=== PATIENT | female | born 1995 | race Caucasian/White ===

== ENCOUNTER 2016-11-27 20:38 | Emergency (ER) | payer MEDICAID ==
[~2016-11-27] VITALS: Ht 170.2 cm; Wt 77.1 kg
[2016-11-27] MEDS ORDERED: MORPHINE SULFATE 4 MG/ML SYRG IV ONE (21:45)
[2016-11-27] MEDS ORDERED: ONDANSETRON HCL 4 MG/2 ML VIAL IV ONE (21:45)
[2016-11-27] MEDS ORDERED: HYDROmorphone HCL 2 MG/ML VL ONE (22:29)
[2016-11-27] MEDS ORDERED: CARISOPRODOL 350 MG TAB PO ONE (23:45)
[2016-11-28] MEDS ORDERED: LORazepam 2MG/ML-1ML VIAL IV ONE (01:00)
[2016-11-28] MEDS ORDERED: fentaNYL CITRATE 100 MCG/2 ML VL IV ONE (01:15)
[2016-11-28] MEDS ORDERED: HYDROmorphone HCL 2 MG/ML VL IV ONE (01:45)
[2016-11-28 02:54] VITALS: BP 122/65
== END 2016-11-28 03:12 | disposition home or self-care (01) ==
LOC: ER 20:38 → EDBD 20:38 → ER 11-28 03:12
DX: S33.5XXA Sprain of ligaments of lumbar spine, initial encounter (principal); F17.210 Nicotine dependence, cigarettes, uncomplicated; W19.XXXA Unspecified fall, initial encounter; Y93.79 Activity, other specified sports and athletics; Y99.8 Other external cause status; Y92.098 Other place in other non-institutional residence as the place of occurrence of the external cause
CPT/HCPCS: 72131; 96374; 96375; 99284; J1170; J2060; J2270; J2405; J3010

== ENCOUNTER → 2017-05-23 | Outpatient (CLI) | payer OTHER | END | disposition home or self-care (01) | LOC: LAB 14:18 | PROVIDERS: ATTEND Registered Nurse General Practice | DX: Z20.9 Contact with and (suspected) exposure to unspecified communicable disease (principal) | CPT/HCPCS: 36415; 86706 ==

== ENCOUNTER 2017-12-10 19:18 | Emergency (ER) | payer MEDICAID, OTHER ==
[~2017-12-10] VITALS: Ht 162.6 cm; Wt 77.1 kg
[2017-12-10] MEDS ORDERED: ONDANSETRON ODT 4 MG TAB PO ONE ×2 (19:24→19:30)
[2017-12-10 20:16] LABS: Hematocrit 44.8 % (36.0-46.0); Hemoglobin 15.1 g/dL (12.2-16.2); Mean Corpuscular Hemoglobin 28.9 pg (28.0-32.0); Mean Corpuscular Hgb Conc. 33.7 g/dL (32.0-36.0); Mean Corpuscular Volume 85.7 fL (80.0-100.0); Platelet Count (auto) 314 10^3/uL (140-450); Red Blood Cells 5.23 10^6/uL (4.0-5.20); White Blood Cell 13.8 10^3/uL (4.4-10.8)
[2017-12-10 20:29] LABS: Band Neutrophils % (manual) 0; Basophils % (manual) 0 (0.0-2.0); Blast Cells 0; Eosinophils % (manual) 0 (0-7); Metamyelocytes % 0; Myelocytes % 0; Promyelocytes % 0; Reactive Lymphocytes 0
[2017-12-10 20:38] LABS: Albumin 3.2 g/dL (3.4-5.0); BUN/Creatinine Ratio 17.1; Calcium 8.5 mg/dL (8.5-10.1); Potassium 3.3 mmol/L (3.5-5.1)
[2017-12-10 20:41] LABS: Bilirubin, Total 0.4 mg/dL (0.2-1.0); Total Protein 7.4 g/dL (6.4-8.2)
[2017-12-10 20:44] LABS: INR 1.06 (0.9-1.15); Partial Thromboplastin Time 27.3 sec (22.64-33.71); Prothrombin Time 11.6 sec (9.37-12.3)
[2017-12-10 20:51] LABS: Lymphocytes % (manual) 14 (10.0-50.0); Monocytes % (manual) 2 (0-12)
[2017-12-10 21:36] LABS: Urine Bacteria FEW /hpf (None Seen); Urine Blood Negative /uL (Negative); Urine Mucus FEW (None Seen); Urine Specific Gravity 1.028 (1.001-1.035); Urine WBC 25 /hpf (0 - 5)
[2017-12-11] MEDS ORDERED: metroNIDAZOLE 500MG/100ML 100 ML IV ONE (00:30)
[2017-12-11] MEDS ORDERED: ONDANSETRON HCL 4 MG/2 ML VIAL IV ONE (00:30)
[2017-12-11] MEDS ORDERED: cefTRIAXone 1GM/10ml IVPUSH 10 ML IV ONE (00:30)
[2017-12-11 00:45] VITALS: BP 126/67
[2017-12-11] MEDS ORDERED: SODIUM CHLORIDE 0.9% 2,000 ML IV ONE (00:45)
[2017-12-11] MEDS ORDERED: POTASSIUM CHL 20 Meq TABLET PO ONE (02:00)
== END 2017-12-11 04:18 | disposition home or self-care (01) ==
LOC: ER 19:18
DX: K52.9 Noninfective gastroenteritis and colitis, unspecified (principal); E87.6 Hypokalemia; F17.210 Nicotine dependence, cigarettes, uncomplicated
CPT/HCPCS: 36415; 74176; 80053; 81001; 81025; 82150; 83690; 84702; 85007; 85027; 85610; 85730; 96365; 96375; 99285; J2405; J3490; J7030; Q0162